=== PATIENT | female | born 1960 | race Caucasian/White ===

== ENCOUNTER 2016-04-28 15:49 | Observation (INO) | payer OTHER ==
--- NOTE | ~2016-04-28 | CT71 ---
[facility] A Service of [facility] & [facility] RADIOLOGY TEXT RESULTS PATIENT: JERAMIE HOLLAND LOCATION: [facility] 326-01 : [birth year] UNIT #: [id number] AGE: [address]: Jesus Steiner MD SEX: F ORDER DR: [id number] [facility] [address] [place], [place] [address] [id number] I MR#: [id number] Acc #: [id number] NAME: JERAMIE HOLLAND. : 1960 SEX: F STUDY DATE/TIME: 04/28/2016 17:27 UNIT: [address] ROOM: [facility] STUDY DESCRIPTION: CT Head Wo Contrast Attending Physician: Jesus Steiner M.D. Ordering Physician: Ed Doctor [id number] [facility] Primary Care Physician: Cherry Stephenson M.D. MEDICAL IMAGING REPORT This report is preliminary unless electronic signature is present EXAM Noncontrast CT head. 04/28/2016 at 17:27 HISTORY Fell 04/27/2016 with loss of consciousness. Dizziness and confusion since a fall. COMPARISON Noncontrast CT head 10/29/2009. This CT exam was performed with one or more of the following radiation dose reduction techniques: automatic exposure control, adjustment of mA and/or kV according to patient size, and iterative reconstruction. FINDINGS Axial noncontrast images were obtained from the skull base to the vertex. Ventricular size and configuration are normal. There is no evidence of acute infarct or hemorrhage. There are no extra-axial fluid collections. No mass lesion or mass effect is seen. There are no skull fractures. IMPRESSION Normal noncontrast head CT. Dictated by... Jadyn Ardon M.D. THIS IS AN ELECTRONICALLY VERIFIED REPORT Jadyn Ardon M.D. at 04/29/2016 10:07 PM Moreno TD: 04/29/2016 06:40 JOB #: [id number] [facility] A Service of [facility] & [facility] RADIOLOGY TEXT RESULTS PATIENT: JERAMIE HOLLAND LOCATION: [facility] 326-01 : [birth year] UNIT #: [id number] AGE: [address]: Jesus Steiner MD SEX: F ORDER DR: MEDICAL IMAGING REPORT COPY
--- NOTE | ~2016-04-28 | CR243 ---
[facility] A Service of [facility] & [facility] RADIOLOGY TEXT RESULTS PATIENT: JERAMIE HOLLAND LOCATION: [facility] 326-01 : [birth year] UNIT #: [id number] AGE: [address]: Jesus Steiner MD SEX: F ORDER DR: [id number] [facility] [address] [place], [place] [address] [id number] I MR#: [id number] Acc #: [id number] NAME: JERAMIE HOLLAND. : 1960 SEX: F STUDY DATE/TIME: 04/28/2016 17:06 UNIT: [address] ROOM: [facility] STUDY DESCRIPTION: CR Thoracic Spine 3 Views Attending Physician: Jesus Steiner M.D. Ordering Physician: Casper Lynne M.D. Primary Care Physician: Cherry Stephenson M.D. MEDICAL IMAGING REPORT This report is preliminary unless electronic signature is present EXAM Thoracic spine series 04/28/2016 HISTORY Syncope. Fall yesterday. Back pain mostly left side lower. Patient's stated pain radiates down left leg. FINDINGS AP, lateral and swimmer's views of the thoracic spine are presented. Comparison to chest radiograph 11/29/2015. Moderate and stable dextroscoliosis of the thoracic spine centered at the mid to lower thoracic spine with associated levoscoliosis of lumbar spine. No traumatic fracture or malalignment. Vertebral body heights normal. Bxsj-rn-mgajreyh generalized intervertebral disc space narrowing. Multifocal endplate osteophyte formations. Visualized upper thoracic spine shows degenerative change but no acute abnormality. The visualized cervical spine is notable for degenerative change. The central lung zones are clear. Cardiomediastinal contours within normal limits. Evidence of prior cholecystectomy. Dictated by... Galo Mota M.D. THIS IS AN ELECTRONICALLY VERIFIED REPORT Galo Mota M.D. at 04/29/2016 4:18 PM SOFI/maryanne TD: 04/29/2016 06:12 JOB #: [id number] [facility] A Service of [facility] & [facility] RADIOLOGY TEXT RESULTS PATIENT: JERAMIE HOLLAND LOCATION: [facility] 326-01 : [birth year] UNIT #: [id number] AGE: [address]: Jesus Steiner MD SEX: F ORDER DR: MEDICAL IMAGING REPORT COPY
--- NOTE | ~2016-04-28 | CT52 ---
[facility] A Service of [facility] & [facility] RADIOLOGY TEXT RESULTS PATIENT: JERAMIE HOLLAND LOCATION: [facility] 326- : [birth year] UNIT #: [id number] AGE: [address]: Jesus Steiner MD SEX: F ORDER DR: [id number] [facility] [address] [place], [place] [address] [id number] I MR#: [id number] Acc #: [id number] NAME: JERAMIE HOLLAND. : 1960 SEX: F STUDY DATE/TIME: 04/28/2016 17:32 UNIT: [address] ROOM: [facility] STUDY DESCRIPTION: CT Cervical Spine Wo Cont Attending Physician: Jesus Steiner M.D. Ordering Physician: Ziyad Zavala M.D. Primary Care Physician: Cherry Stephenson M.D. MEDICAL IMAGING REPORT This report is preliminary unless electronic signature is present EXAM CT cervical spine without contrast. HISTORY Fell yesterday. Pain. TECHNIQUE This CT exam was performed with one or more of the following radiation dose reduction techniques: automatic exposure control, adjustment of mA and/or kV according to patient size, and iterative reconstruction. FINDINGS CT cervical spine was performed without contrast. There is moderately severe degenerative disc space narrowing from C4-C5 to C6-C7 with small anterior and posterior marginal osteophytes at these levels. There is also mild bilateral bony outlet foraminal narrowing at C5-C6. Moderate degenerative changes at the anterior junction of C1-C2. No fracture or subluxation. No precervical soft tissue swelling. IMPRESSION 1. No acute findings. 2. Moderately severe degenerative disc space narrowing from C4-C5 to C6-C7 with associated bony hypertrophic changes and mild bilateral bony outlet foraminal narrowing at C5-C6. Dictated by... Nato Cuellar M.D. THIS IS AN ELECTRONICALLY VERIFIED REPORT Nato Cuellar M.D. at 04/29/2016 11:25 PM DFL/leilani TD: 04/29/2016 07:02 [facility] A Service of [facility] & [facility] RADIOLOGY TEXT RESULTS PATIENT: JERAMIE HOLLADN LOCATION: [facility] 326-01 : [birth year] UNIT #: [id number] AGE: [address]: Jesus Steiner MD SEX: F ORDER DR: JOB #: [id number] MEDICAL IMAGING REPORT COPY
--- NOTE | ~2016-04-28 | HP ---
Unit #: [id number] #: [id number] Patient: JERAMIE HOLLAND [id number] [address] [place], [place] [address] [id number] I MR#: [id number] NAME: JERAMIE HOLLAND. ROOM: 6[address] Age: 56 Sex: F Admission Date: 04/28/2016 : 1960 Attending Physician: Jesus Steiner M.D. Primary Care Physician: Cherry Stephenson M.D. HISTORY AND PHYSICAL CHIEF COMPLAINT Lightheaded, dizziness, syncope, fell down. HISTORY OF PRESENT ILLNESS The patient is a 56-year-old lady with a past medical history of hypertension, diabetes, chronic opioid dependent with chronic pains, history of COPD, who presented to the emergency room with the chief complaint of syncope at home. Apparently she lives alone. She went to the bathroom to pass stools and had a large bowel movement and she felt lightheaded, dizzy and fell down for some time on the carpet. She hit a small table there and, after some time she woke up and she called EMS and got to the emergency room. Her other medical history is also significant for depression. In the emergency room, initially she was noted to have a creatinine of 1.5 with her baseline being less than 1. She was also noted to have a CK of 3680. She was started on IV fluids and is being admitted for further care. S She denies any fevers, denies any chills, denies any chest pains, palpitations. Denies any shortness of breath, denies having any abdominal pain, denies having any dysuria. Complains of generalized tiredness and fatigue. PAST MEDICAL HISTORY 1. History of diabetes. 2. Hypertension. 3. Depression. 4. Admission a year ago here for prescription overdosage. HOME MEDICATIONS Include: 1. Pravastatin 20 m daily. 2. Clonidine 0.3 mg b.i.d. 3. Lisinopril/hydrochlorothiazide 10/12.5 mg one tablet daily. 4. Synthroid 25 mcg q.a.m. 5. Metformin 500 mg two tablets q.a.m. 6. Phenergan 25 mg p.r.n. 7. Vitamin D3 2000 units daily. 8. Vitamin B12 1000 mcg. 9. Celexa 40 mg daily. 10. Abilify 10 mg daily. 11. Topamax 200 mg b.i.d. 12. Neurontin 400 mg t.i.d. 13. Oxycodone 20 mg q.i.d. 14. Esomeprazole 40 mg daily. Unit #: [id number] #: [id number] Patient: JERAMIE HOLLAND 15. Linzess 145 mcg daily. 16. Symbicort two puffs daily. 17. Brimonidine eye drops b.i.d. 18. Dorzolamide eye drops b.i.d. ALLERGIES Include: 1. Codeine. 2. Ergotamine. 3. Toradol. 4. Imitrex. 5. Zomig. 6. Stadol. 7. Talwin. 8. Compazine. SOCIAL HISTORY Currently on disability. Denies smoking, alcohol, using illicit drugs. FAMILY HISTORY Noncontributory to the current admission. REVIEW OF SYSTEMS A complete review of systems is done and negative except for what is mentioned in the HPI. PHYSICAL EXAMINATION VITAL SIGNS: Temperature 98.4, pulse rate 98, respiratory rate 16, blood pressure 127/74. GENERAL: Alert, oriented x3. Lying in the bed in no acute distress. HEENT: Normocephalic, atraumatic. No icterus. PERRLA. Extraocular muscles are intact. NECK: Supple, no JVD. LUNGS: Bilateral air entry. Clear to auscultation. HEART: S1, S2. Bradycardic. ABDOMEN: Soft, nontender. EXTREMITIES: No edema. Normal peripheral pulses. DIAGNOSTIC STUDIES LABORATORY: Glucose 106, BUN 40, creatinine 1.5, sodium 138, potassium 3, chloride 100, bicarb 29. TSH 5.85. Kindly note, CK total was initially reported as 3600 and now it is appearing in the "magic report" as an error. WBC 8, hemoglobin 10.8, platelet count 226. Urine toxicology screen positive for opiates. Urinalysis trace protein, rbc's 25-50, wbc's 2-5. ASSESSMENT AND PLAN 1. Syncope. Will check orthostatic vital signs. Will keep her on IV fluids and monitor. Her heart rates are also on the lower side. Will restart her blood pressure medications with holding parameters. 2. Questionable rhabdomyolysis. Initially, on the labs, the CK was reported as 3600, now it is reported as error. Will gently treat with IV fluids. I will call the lab right now and find out what happened. 3. Diabetes. h.s. insulin sliding scale. 4. Hypertension. Will resume the home medications and monitor. 5. Hypothyroidism. Continue with Synthroid. 6. Depression. Resume the home medications and monitor. Unit #: [id number] #: [id number] Patient: JERAMIE HOLLAND 7. DVT precautions. 8. Further recommendations per hospital course. Dictated by Celestine Vicente TD: 04/28/2016 20:46 JOB #: [id number] HISTORY AND PHYSICAL X X HISTORY AND PHYSICAL
--- NOTE | ~2016-04-28 | CR72 ---
[facility] A Service of [facility] RADIOLOGY TEXT RESULTS PATIENT: JERAMIE HOLLAND LOCATION: [facility] 326-01 : [birth year] UNIT #: [id number] AGE: [address]: Jesus Steiner MD SEX: F ORDER DR: [id number] [facility] [address] [place], [place] [address] [id number] I MR#: [id number] Acc #: [id number] NAME: JERAMIE HOLLAND. : 1960 SEX: F STUDY DATE/TIME: 04/28/2016 17:18 UNIT: [address] ROOM: [facility] STUDY DESCRIPTION: CR Chest Single View Portable Attending Physician: Jesus Steiner M.D. Ordering Physician: Casper Lynne M.D. Primary Care Physician: Cherry Stephenson M.D. MEDICAL IMAGING REPORT This report is preliminary unless electronic signature is present EXAM Portable chest x-ray 04/28/2016 HISTORY Syncope. Fall yesterday. Back pain mostly left side. Patient stated pain radiates down left leg. FINDINGS Single AP radiograph of chest is presented. Comparison 11/29/2015. There is a cervical stabilization collar in place. No acute-appearing bony abnormality. Thoracolumbar scoliosis unchanged. See thoracic and lumbar spine series for further assessment. The ribs are intact. Heart is normal in size. There is a double density superimposed over the lower central and left paracentral thorax which is not clearly seen on thoracic or lumbar spine series. Faintly evident though less pronounced on chest radiograph 11/29/2015. Given location and appearance, I favor this is a intermittently visualized sliding-type hiatal hernia. Patient was noted to have a small hiatal hernia on upper GI series and small-bowel follow-through 11/12/2015. This could best be further clarified with CT examination on an elective basis. The lungs are well inflated. Relative lucency in the mid to upper lung zones raises concern for underlying emphysema. No acute pulmonary disease, pleural effusion or pneumothorax. No suspicious nodule. Dictated by... Galo Mota M.D. THIS IS AN ELECTRONICALLY VERIFIED REPORT Galo Mota M.D. at 04/29/2016 4:18 PM SOFI/maryanne [facility] A Service of [facility] RADIOLOGY TEXT RESULTS PATIENT: JERAMIE HOLLAND LOCATION: [facility] 326-01 : [birth year] UNIT #: [id number] AGE: [address]: Jesus Steiner MD SEX: F ORDER DR: TD: 04/29/2016 06:17 JOB #: [id number] MEDICAL IMAGING REPORT COPY
--- NOTE | ~2016-04-28 | EKG ---
PATIENT: JERAMIE HOLLAND UNIT #: [id number] Ventricular Rate: 83 BPM Atrial Rate: 83 BPM P-R Interval: 126 ms QRS Duration: 86 ms Q-T Interval: 478 ms QTC Calculation(Bezet): 561 ms P [place]: 55 degrees Calculated R [place]: 23 degrees Calculated T [place]: 43 degrees Diagnosis Line: Normal sinus rhythm Diagnosis Line: Prolonged QT Diagnosis Line: Abnormal ECG Diagnosis Line: When compared with ECG of 27-NOV-2015 12:32, Diagnosis Line: QT has lengthened Diagnosis Line: Confirmed by ELVIRA WAGNER MD ([id number]) on 04/28/2016 Diagnosis Line: 5:49:04 PM INTERPRETING MD: KRISTY VARGAS
--- NOTE | ~2016-04-28 | DS ---
Unit #: [id number] #: [id number] Patient: JERAMIE HOLLAND [id number] [address] [address] [id number] I MR#: [id number] NAME: JERAMIE HOLLAND. ROOM: [facility] Age: 56 Sex: F Admission Date: 04/28/2016 : 1960 Discharge Date: 04/30/2016 Attending Physician: Jesus Steiner M.D. Primary Care Physician: Cherry Stephenson M.D. DISCHARGE SUMMARY PRIMARY DIAGNOSIS Simple syncope, likely vasovagal, related to bowel movement. SECONDARY DIAGNOSES 1. Polypharmacy. 2. Mild rhabdomyolysis, improving. 3. Depression. 4. Chronic pain. 5. Diabetes mellitus type 2. HOSPITAL COURSE The patient was place din the hospital and monitored on telemetry. Had unremarkable orthostatic vitals. Had EKG and echocardiogram done although the echocardiogram report is pending and can be followed up as an outpatient. Her symptoms improved and her CK level decreased. Physical therapy recommended a rolling walker which we have provided for the patient. We have advised her at this time to stay off of her lisinopril/hydrochlorothiazide but to resume all of her other home medications and to follow up with her PCP to review her medicine list and consider possible titration off of some of her other medications as well if this is felt to be medically appropriate. It was noted that the patient has had problems with unintentional medication overdose previously and was admitted to this hospital in November 2015 for such and the lightheadedness and syncope that the patient developed may be related to a combination of multiple medications that she is on as well. DISCHARGE DISPOSITION To home. DISCHARGE STATUS Stable. DISCHARGE ACTIVITY Ad audie. DISCHARGE DIET Low sodium, diabetic diet. DISCHARGE FOLLOWUP With her PCP in one to two weeks. DISCHARGE ACTIVITY With her wheeled walker at all times. Unit #: [id number] #: [id number] Patient: JERAMIE HOLLAND DISCHARGE MEDICATIONS 1. Symbicort 80/4.5, two puffs inhaled b.i.d. 2. Neurontin 400 mg p.o. t.i.d. 3. Topamax 200 mg p.o. b.i.d. 4. Celexa 40 mg p.o. daily. 5. Glucophage XR - resume home dose, unknown frequency. 6. Phenergan 25 mg p.o. q.6 hours p.r.n. nausea. 7. Abilify 10 mg p.o. daily. 8. Linzess 145 mcg p.o. daily. 9. Pravastatin 20 mg p.o. daily. 10. Catapres 0.3 mg p.o. b.i.d. 11. Alphagan P drops, one drop right eye b.i.d. 12. Oxycodone 20 mg p.o. q.6 hours. 13. Esomeprazole 40 mg p.o. daily. 14. Synthroid 25 mcg p.o. daily. 15. Vitamin D3 2000 units p.o. daily. 16. Vitamin B12 1000 mcg p.o. daily. 17. Dorzolamide/timolol eyedrops, one drop both eyes b.i.d. Dictated by... Raffy Valdez M.D. NARINDER/taurus TD: 05/02/2016 08:25 JOB #: [id number] DISCHARGE SUMMARY X Raffy Valdez MD X DISCHARGE SUMMARY
--- NOTE | ~2016-04-28 | CR181 ---
[facility] A Service of [facility] & [facility] RADIOLOGY TEXT RESULTS PATIENT: JERAMIE HOLLAND LOCATION: [facility] 326-01 : [birth year] UNIT #: [id number] AGE: [address]: Jesus Steiner MD SEX: F ORDER DR: [id number] [facility] [address] [place], [place] [address] [id number] I MR#: [id number] Acc #: [id number] NAME: JERAMIE HOLLAND. : 1960 SEX: F STUDY DATE/TIME: 04/28/2016 17:01 UNIT: [address] ROOM: [facility] STUDY DESCRIPTION: CR Lumbar Spine 2 or 3 Views Attending Physician: Jesus Steiner M.D. Ordering Physician: Casper Lynne M.D. Primary Care Physician: Cherry Stephenson M.D. MEDICAL IMAGING REPORT This report is preliminary unless electronic signature is present EXAM Lumbar spine series 04/28/2016 HISTORY Syncope. Fall yesterday. Back pain mostly left side lower. Stated pain radiates down left leg. FINDINGS AP and 2 lateral views of the lumbar spine are presented. Comparison to thoracic spine series from same date and abdominal radiograph 11/12/2015. There are 6 kus-kab-hbrjpwu vertebral segments with what appears to be a transitional S1 vertebra. Moderate levoscoliosis centered at L3 vertebral body level. In the lateral projection, given obliquity, alignment within normal limits. Vertebral body heights normal. Moderate to marked intervertebral disc space narrowing L3-L4 with vacuum disc phenomena present. Milder disc space narrowing elsewhere. Multiple small anterior and lateral osteophyte formations. Moderate to marked facet degenerative changes throughout the lumbar spine more pronounced along the concave aspect of the levoscoliosis particularly from the L3-L4 through L5-S1 levels. There is no indication of traumatic fracture or malalignment. The visualized lower thoracic spine shows no acute abnormality. Visualized bony pelvis intact. Bowel gas pattern normal. Prior cholecystectomy. Dictated by... Galo Mota M.D. THIS IS AN ELECTRONICALLY VERIFIED REPORT Galo Mota M.D. at 04/29/2016 4:18 PM SOFI/maryanne TD: 04/29/2016 06:08 [facility] A Service of [facility] & [facility] RADIOLOGY TEXT RESULTS PATIENT: JERAMIE HOLLAND LOCATION: [facility] 326-01 : [birth year] UNIT #: [id number] AGE: [address]: Jesus Steiner MD SEX: F ORDER DR: JOB #: [id number] MEDICAL IMAGING REPORT COPY
[~2016-04-28 15:49] MED LIST: ABILIFY5 MG PO; AMBILIFY PO; AMPHETAMINE SALT PO; BENZONATATE PO; BRIMONIDINE5 ML OD; CITALOPRAM HBR40 M1 PO; CLONIDINE HCL0.3 MG PO; CLONIDINE PO; DEXEDRINE15 MG PO; DORZOLAMIDE HCL10 M1 OU; ESOMEPRAZOLE MA40 MG PO; FLEXERIL PO; FLORASTOR250 M1 PO; GABAPENTIN600 MG PO; GLUCOPHAGE XR500 MG PO; LEXAPRO PO; NEURONTIN PO; OXYCODONE HCL E80 MG PO; OXYCODONE HCL10 MG PO; OXYCONTIN PO; OXYCONTIN80 MG PO; OXYIR5 MG PO; PHENERGAN PO; PHENERGAN25 MG PO; PROTONIX PO; SYNTHROID PO
[2016-04-28 16:58] LABS: BASOPHIL% 0.5 % (0-2.5); DIFF IND NO; EOSINOPHIL# 0.7 X10e3 (0-0.7); EOSINOPHIL% 8.9 % (0.0-7.0); HEMATOCRIT 32.5 % (35.0-45.0); HEMOGLOBIN 10.8 gm/dL (12.0-16.0); LYMPHOCYTE# 1.5 X10e3 (1.0-3.5); LYMPHOCYTE% 19.1 % (17.0-45.0); MEAN CELL VOLUME 90.5 FL (83-96); MEAN CORPUSCULAR HEMOGLOBIN 30.1 PG (28-34); MEAN CORPUSCULAR HGB CONC 33.3 g/dL (30-36); MEAN PLATELET VOLUME 8.1 FL (6.5-11.5); MONOCYTE# 0.6 X10e3 (0-1.0); MONOCYTE% 7.3 % (3.0-12.0); NEUTROPHIL# 5.1 X10e3 (1.5-7.1); NEUTROPHIL% 64.2 % (40-75); PLATELET COUNT 226 X10e3 (140-420); RED BLOOD COUNT 3.59 X10e (3.90-5.30)
[2016-04-28 17:07] LABS: POC - CKMB 64.6 ng/mL (0.0-7.9); POC - TROPONIN <0.05 ng/mL (<=0.05)
[2016-04-28 17:19] LABS: PARTIAL THROMBOPLASTIN TIME 31.6 SECONDS (23.5-31.3); PROTHROMBIN TIME (PATIENT) 10.1 SECONDS (9.6-11.5)
[2016-04-28 17:23] LABS: ALBUMIN SERUM 3.6 g/dL (3.5-5.0); ALKALINE PHOSPHATASE 80 U/L (32-92); ALT (SGPT) 73 U/L (10-40); AST (SGOT) 162 U/L (10-42); BILIRUBIN,TOTAL 0.5 mg/dL (0.2-2.0); BLOOD UREA NITROGEN 40 mg/dL (9-23); BUN/CREATININE RATIO 26.66; CALCIUM SERUM 9.2 mg/dL (8.4-10.2); CARBON DIOXIDE 29 mmol/L (22-31); CHLORIDE 100 mmol/L (100-111); CREATININE SERUM 1.5 mg/dL (0.6-1.4); GLOM FILT RATE Estimated 38.5 mL/min (>60); GLUCOSE FASTING 106 mg/dL (70-110); PROTEIN TOTAL SERUM 6.9 g/dL (6.0-8.3); SODIUM 138 mmol/L (135-145)
[2016-04-28 17:24] LABS: BILIRUBIN, DIRECT <0.1 mg/dL (0.0-0.2); BILIRUBIN,INDIRECT 0.4 mg/dL (0.0-0.9)
[2016-04-28 18:16] LABS: POC - CKMB 41.7 ng/mL (0.0-7.9); POC - TROPONIN <0.05 ng/mL (<=0.05)
[2016-04-28 18:37] LABS: URINE SOURCE CLEAN CATCH
[2016-04-28 18:56] LABS: URINE APPEARANCE CLEAR; URINE BILIRUBIN NEG (NEG); URINE BLOOD TRACE (NEG); URINE COLOR DK YELLOW; URINE GLUCOSE NEG (NEG); URINE KETONE NEG (NEG); URINE LEUKOCYTE ESTERASE NEG (NEG); URINE NITRATE NEG (NEG); URINE PH 5.5 (5-8); URINE PROTEIN TRACE (NEG); URINE UROBILINOGEN 0.2 MG/DL (NEG)
[2016-04-28 19:01] LABS: URBCS1 AUWI 25-50 /[HPF] (0-2); URINE BACTERIA AUWI NEG (NEGATIVE); URINE SQUAMOUS EPITHELIAL CELL NONE SEEN /[HPF]
[2016-04-28] MEDS ORDERED: PRAVASTATIN SOD20 MG PO (19:05)
[2016-04-28 19:06] LABS: CULTURE INDICATED? NO
[2016-04-28] MEDS ORDERED: LISINOPRIL-HCTZ1 T20 PO (19:06)
[2016-04-28] MEDS ORDERED: CATAPRES0.1 MG PO (19:06)
[2016-04-28] MEDS ORDERED: GLUCOPHAGE XR500 MG (19:07)
[2016-04-28] MEDS ORDERED: SYNTHROID0.05 MG PO (19:07)
[2016-04-28 19:08] LABS: AMPHETAMINE NEG (NEG); BARBITURATES NEG (NEG); BENZODIAZEPINES NEG (NEG); COCAINE NEG (NEG); MARIJUANA NEG (NEG); OPIATES POS (NEG); TRICYCLIC ANTIDEPRESSANTS NEG (NEG); U METHADONE NEG (NEG)
[2016-04-28] MEDS ORDERED: PHENERGAN25 M1 PO (19:08)
[2016-04-28] MEDS ORDERED: ABILIFY10 MG PO (19:09)
[2016-04-28] MEDS ORDERED: CITALOPRAM HBR40 MG PO (19:09)
[2016-04-28] MEDS ORDERED: VITAMIN D-32000 UNI2 PO (19:09)
[2016-04-28] MEDS ORDERED: TOPAMAX200 MG PO (19:09)
[2016-04-28] MEDS ORDERED: B-121000 MC1 PO (19:09)
[2016-04-28] MEDS ORDERED: GABAPENTIN400 MG PO (19:10)
[2016-04-28] MEDS ORDERED: DAZIDOX20 MG PO (19:10)
[2016-04-28] MEDS ORDERED: LINZESS145 MCG PO (19:11)
[2016-04-28] MEDS ORDERED: ESOMEPRAZOLE MA40 MG PO (19:11)
[2016-04-28] MEDS ORDERED: SYMBICORT80 INH (19:11)
[2016-04-28] MEDS ORDERED: ALPHAGAN P5 ML OD (19:12)
[2016-04-28] MEDS ORDERED: DORZOLAMIDE-TIM10 ML OU (19:12)
[2016-04-28 20:44] LABS: %MB 2.4 % (0.0-4.0); MB 79.6 ng/ml
[2016-04-29 06:25] LABS: HEMATOCRIT 29.1 % (35.0-45.0); HEMOGLOBIN 9.8 gm/dL (12.0-16.0); MEAN CELL VOLUME 91.3 FL (83-96); MEAN CORPUSCULAR HEMOGLOBIN 30.8 PG (28-34); MEAN CORPUSCULAR HGB CONC 33.8 g/dL (30-36); MEAN PLATELET VOLUME 8.7 FL (6.5-11.5); RED BLOOD COUNT 3.19 X10e (3.90-5.30); RED CELL DISTRIBUTION WIDTH 12.1 % (11.0-15.5); WHITE BLOOD COUNT 7.7 X10e3 (4.0-10.5)
[2016-04-29 06:58] LABS: ALBUMIN SERUM 2.8 g/dL (3.5-5.0); BILIRUBIN,TOTAL 0.3 mg/dL (0.2-2.0); BUN/CREATININE RATIO 22.5; CALCIUM SERUM 7.9 mg/dL (8.4-10.2); CREATININE SERUM 1.2 mg/dL (0.6-1.4); GLOM FILT RATE Estimated 49.8 mL/min (>60); MAGNESIUM 2.1 mg/dL (1.6-3.0); POTASSIUM 3.3 mmol/L (3.5-5.1); PROTEIN TOTAL SERUM 5.7 g/dL (6.0-8.3)
[2016-04-30 06:23] LABS: BLOOD UREA NITROGEN 13 mg/dL (9-23); BUN/CREATININE RATIO 14.44; CARBON DIOXIDE 22 mmol/L (22-31); CHLORIDE 117 mmol/L (100-111); CPK (CREATINE PHOSPHOKINASE) 698 IU/L (26-140); CREATININE SERUM 0.9 mg/dL (0.6-1.4); GLOM FILT RATE Estimated ABOVE60 mL/min (>60); GLUCOSE FASTING 96 mg/dL (70-110); MAGNESIUM 1.7 mg/dL (1.6-3.0); POTASSIUM 4.3 mmol/L (3.5-5.1); SODIUM 144 mmol/L (135-145)
[2016-04-30] MEDS ORDERED: DORZOLAMIDE-TIM10 ML (13:32)
== END 2016-04-30 15:35 | disposition home or self-care (01) ==
LOC: CED 15:49 → CEDOF 19:10 → C3A PCU 20:50
PROVIDERS: Emergency Medicine; Internal Medicine
DX: R55 Syncope and collapse (principal); M62.82 Rhabdomyolysis; F32.9 Major depressive disorder, single episode, unspecified; G89.29 Other chronic pain; E11.9 Type 2 diabetes mellitus without complications; Z79.4 Long term (current) use of insulin; I10 Essential (primary) hypertension; E03.9 Hypothyroidism, unspecified; J44.9 Chronic obstructive pulmonary disease, unspecified; M50.321 Other cervical disc degeneration at C4-C5 level; Z88.5 Allergy status to narcotic agent; Z88.8 Allergy status to other drugs, medicaments and biological substances
CPT/HCPCS: 36415; 70450; 71010; 72072; 72100; 72125; 80048; 80053; 80076; 80307; 81003; 82550; 82553; 82947; 83735; 84443; 84484; 85025; 85027; 85610; 85730; 93005; 93306; 94640; 94760; 96372; 97162; 97165; 99285; G0378; J1650